=== PATIENT | male | born 2000 | race Caucasian/White ===

== ENCOUNTER 2020-01-11 15:16 | Emergency (ER) | payer MEDICAID, SELFPAY ==
[2020-01-11 15:40] VITALS: BP 129/71; PULSE 78; RESP 20; TEMP 36.7; O2SAT 96; BMI 32.1
--- NOTE | 2020-01-11 15:55 | HMH.EDUTC ---
[facility] [place] Disposition Clinical Impression: Otitis media Qualifiers: Otitis media type: suppurative Chronicity: acute Laterality: bilateral Recurrence: non-recurrent Spontaneous tympanic membrane rupture: without spontaneous rupture Qualified Code(s): H66.003 - Acute suppurative otitis media without spontaneous rupture of ear drum, bilateral Pharyngitis Qualifiers: Pharyngitis/tonsillitis etiology: unspecified etiology Qualified Code(s): J02.9 - Acute pharyngitis, unspecified Disposition: Home, Self-Care Condition on Discharge: Good Instructions: Sore Throat, Middle Ear Infection Additional Instructions: Drink plenty of fluids. Take tylenol or ibuprofen for pain or fever. Take the medications as directed. Follow up with your regular doctor. GO TO THE ER FOR ANY WORSENING SYMPTOMS Prescriptions: predniSONE [Deltasone 10mg tablet] 10 mg PO BID 3 Days #6 tab Transmission Status: Received by [id number] Azithromycin [Z-Michael 250mg Tab*] 250 mg PO UD DOSE PK #6 tab Transmission Status: Received by [id number] Referrals: Provider,Referral, [Primary Care Provider] - Time of Disposition: 15:58 Medical Decision Making - Medical Records Medical records reviewed: No: I reviewed the patient's medical records. - Ruslan Inquiry Pt receiving controlled substance: No Vital Signs: 01/11/20 15:40 01/11/20 16:08 Temperature 98.0 F 98.0 F Temperature Source Oral Pulse Rate 78 Pulse Rate [Left Brachial] 78 Respiratory Rate 20 20 Blood Pressure 129/71 Blood Pressure [Left Arm] 129/71 Blood Pressure Mean [Left Arm] 90 Blood Pressure Source [Left Arm] Automatic Cuff Blood Pressure Position [Left Arm] Sitting 02 Sat by Pulse Oximetry 96 Oxygen Delivery Method Room Air - Lab Data Lab results reviewed: Yes: I reviewed the patient's lab results. Lab Results 01/11/20 16:10: Strep Scn Rapid Clinic Negative Orders (Tests/Meds): ORDERS Category Date Time Status Strep Screen Confirmation Stat Micro 01/11/20 16:10 Received [facility] [place] HPI - General Stated complaint: Sore throat, pain in ears,headache Time Seen by Provider: 01/11/20 15:55 Mode of Arrival: Ambulatory Source of Information: Patient Limitations: No Limitations Description of Symptoms (Recalled from Triage Doc. by RN): PATIENT C/O SORE THROAT SINCE YESTERDAY AND BILATERAL EAR PAIN WITH POPPING THAT STARTED THIS MORNING. ALSO C/O FEELING TIRED. DENIES FEVER AND DIZZINESS. DENIES ANY SICK CONTACTS OR TRAVEL; WORKS AT [employer] Symptoms (Recalled from RN notes): Yes Resp Symptoms (Recalled from RN notes): No Skin Symptoms (Recalled from RN notes): No MS Symptoms (Recalled from RN notes): No Functional Status (Recalled from RN notes): WNL - History of Present Illness Provider Complaint: He c/o 2 days of right ear pain and sore throat. He denies any cough or chest congestion or fever. - Related Data Previous Rx's Medication Instructions Recorded Azithromycin [Z-Michael 250mg Tab*] 250 mg PO UD DOSE PK #6 tab 01/11/20 predniSONE [Deltasone 10mg tablet] 10 mg PO BID 3 Days #6 tab 01/11/20 Allergies Allergy/AdvReac Type Severity Reaction Status Date / Time amoxicillin [From Augmentin] Allergy Verified 01/11/20 15:45 cefdinir [From Omnicef] Allergy Verified 01/11/20 15:45 clavulanic acid Allergy Verified 01/11/20 15:45 [From Augmentin] - Worker's Comp Is this a Worker's Comp case?: No [facility] History - Hepatitis A Screen Drug use history?: No High risk sexual behaviors?: No History of sexually transmitted infection?: No Currently employed?: No Childcare worker?: No Do you have indoor plumbing?: Yes Do you have electricity?: Yes Attestation statement:: This patient has been screened for Hepatitis A risk factors. I have reviewed the patient's past medical history: Yes Medical History: Denies:: Diabetes Mellitus Type 2 Laterality Cases: Bilateral: Tonsillectomy Other Surgeries: Y
[2020-01-11 16:08] VITALS: BP 129/71; PULSE 78; RESP 20; TEMP 36.7; O2SAT 96
[2020-01-11 16:13] LABS: UTC Strep Screen (Rapid) Negative (Negative)
== END 2020-01-11 16:13 | disposition home or self-care (01) ==
PROVIDERS: Emergency Provider Nurse Practitioner Family
DX: H66.003 Acute suppurative otitis media without spontaneous rupture of ear drum, bilateral (principal); J02.9 Acute pharyngitis, unspecified
CPT/HCPCS: 87880; 99201

== ENCOUNTER 2020-04-11 13:08 | Emergency (ER) | payer MEDICAID, SELFPAY ==
[2020-04-11 13:28] VITALS: BP 118/62; PULSE 73; RESP 19; TEMP 37.1; O2SAT 97; BMI 33.5
--- NOTE | 2020-04-11 13:43 | HMH.EDUTC ---
[facility] [place] Disposition Clinical Impression: Chigger bites Disposition: Home, Self-Care Condition on Discharge: Good Instructions: DI for Rash, Hydrocortisone Topical, Preventing the Spread of Coronavirus Discharge Instructions Additional Instructions: Make sure to clean lower legs well and apply hydrocortisone cream to help with itching and irritation *Calamine lotion may help with itching and irritation You was checked for COVID 19, and you was given handout with instructions to Self Quarantine while awaiting result and Self Isolation if Positive Return if needed Straight to ER if any life threatening symptoms Follow instructions on handout to help prevent the spread of COVID 19 Call to the [facility] on Thursday TO SEE IF YOUR COVID RESULTS ARE BACK Prescriptions: Hydrocortisone 1 applicatio TP BID #1 tube Transmission Status: Received by [id number] Referrals: PCP,No [Primary Care Provider] - As needed Forms: Work/School Release Time of Disposition: 13:59 Medical Decision Making - Ruslan Inquiry Pt receiving controlled substance: No Ruslan was queried for this patient: No Vital Signs: 04/11/20 13:28 04/11/20 14:14 Temperature 98.7 F 98.7 F Temperature Source Oral Oral Pulse Rate 73 Pulse Rate [Left] 73 Respiratory Rate 19 19 Blood Pressure 118/62 Blood Pressure [Right Arm] 118/62 Blood Pressure Mean [Right Arm] 80 Blood Pressure Source [Right Arm] Automatic Cuff Blood Pressure Position Sitting Blood Pressure Position [Right Arm] Sitting 02 Sat by Pulse Oximetry 97 Oxygen Delivery Method Room Air Room Air Orders (Tests/Meds): ORDERS Category Date Time Status Covid-19 Nasal PCR Sendout Dereje Stat Lab 04/11/20 13:42 Received [facility] [place] HPI - General Stated complaint: sore throat Time Seen by Provider: 04/11/20 13:43 Mode of Arrival: Ambulatory Source of Information: Patient Limitations: No Limitations Description of Symptoms (Recalled from Triage Doc. by RN): Cough x 1 week, employer wants Covid testing, Rash on lower L leg HEENT Symptoms (Recalled from RN notes): Yes Resp Symptoms (Recalled from RN notes): No Skin Symptoms (Recalled from RN notes): No MS Symptoms (Recalled from RN notes): No Functional Status (Recalled from RN notes): stable - History of Present Illness Provider Complaint: Patient states that he has been having a itchy like rash on his left leg State that it is no where else on his body and occured after he was out in the grass State that he took a shower immediately after he came in but still itching States that also he has had cough and throat irritation for over a week and work wanted him to come in and get checked for COVID - Related Data Previous Rx's Medication Instructions Recorded Azithromycin [Z-Michael 250mg Tab*] 250 mg PO UD DOSE PK #6 tab 01/11/20 predniSONE [Deltasone 10mg tablet] 10 mg PO BID 3 Days #6 tab 01/11/20 Hydrocortisone 1 applicatio TP BID #1 tube 04/11/20 Allergies Allergy/AdvReac Type Severity Reaction Status Date / Time amoxicillin [From Augmentin] Allergy Verified 04/11/20 13:39 cefdinir [From Omnicef] Allergy Verified 04/11/20 13:39 clavulanic acid Allergy Verified 04/11/20 13:39 [From Augmentin] - Worker's Comp Is this a Worker's Comp case?: No Is this an H Worker's Comp?: No Is this a May Worker's Comp?: No [facility] History - Hepatitis A Screen Drug use history?: No High risk sexual behaviors?: No History of sexually transmitted infection?: No Currently employed?: No Childcare worker?: No Do you have indoor plumbing?: Yes Do you have electricity?: Yes Attestation statement:: This patient has been screened for Hepatitis A risk factors. I have reviewed the patient's past medical history: Yes Medical History: Denies:: Cancer, Diabetes Mellitus Type 1, Diabetes Mellitus Type 2, Internal Pacemaker, MRSA Laterality Cases: Bilateral: Tonsillectomy Other Surgeries: Yes: Other. No: Pacemaker Amputation: No Fr
[2020-04-11 14:14] VITALS: BP 118/62; PULSE 73; RESP 19; TEMP 37.1; O2SAT 97
[2020-04-12 15:54] LABS: Covid-19 Nasal PCR Sendout Lex NOT DETECTED
== END 2020-04-11 14:17 | disposition home or self-care (01) ==
PROVIDERS: Emergency Provider Nurse Practitioner
DX: B88.0 Other acariasis (principal); Z20.828 Contact with and (suspected) exposure to other viral communicable diseases
CPT/HCPCS: 99201; U0004

== ENCOUNTER 2020-09-29 14:41 | Emergency (ER) | payer SELFPAY ==
[2020-09-29 15:05] VITALS: BP 126/80; PULSE 65; RESP 14; TEMP 36.9; O2SAT 99; BMI 32.8
--- NOTE | 2020-09-29 15:20 | HMH.EDUTC ---
[facility] – [place] Disposition Clinical Impression: Exposure to COVID-19 virus Acute bronchitis Qualifiers: Bronchitis organism: unspecified organism Qualified Code(s): J20.9 - Acute bronchitis, unspecified Disposition: Home, Self-Care Condition on Discharge: Good Instructions: DI for COVID-19 (Suspected or Confirmed ), Preventing the Spread of Coronavirus Discharge Instructions Additional Instructions: Drink plenty of fluids. Take tylenol for pain or fever. Return if you begin to have difficulty breathing. Follow up with your regular doctor. GO TO THE ER FOR ANY WORSENING SYMPTOMS Prescriptions: Albuterol Sulfate [Albuterol Sulfate Hfa] 2 puffs IH Q6HP PRN 30 Days #1 hfa.aer.ad PRN Reason: Shortness Of Breath Transmission Status: Received by [id number] predniSONE [Deltasone 10mg tablet] 10 mg PO BID 5 Days #10 tab Transmission Status: Received by [facility] Azithromycin [Z-Michael 250mg Tab*] 250 mg PO UD DOSE PK #6 tab Transmission Status: Received by [facility] Referrals: PCP,No [Primary Care Provider] - Forms: Work/School Release Time of Disposition: 15:25 Medical Decision Making - Medical Records Medical records reviewed: No: I reviewed the patient's medical records. - Ruslan Inquiry Pt receiving controlled substance: No Vital Signs: 09/29/20 15:05 09/29/20 15:28 Temperature 98.4 F 98.4 F Temperature Source Oral Pulse Rate 65 Pulse Rate [Right Brachial] 65 Respiratory Rate 14 14 Blood Pressure 126/80 Blood Pressure [Right Arm] 126/80 Blood Pressure Mean [Right Arm] 95 Blood Pressure Source [Right Arm] Automatic Cuff Blood Pressure Position [Right Arm] Sitting 02 Sat by Pulse Oximetry 99 Oxygen Delivery Method Room Air [facility] – [place] HPI - General Stated complaint: sore throat, cough, no taste/smell; exposure Time Seen by Provider: 09/29/20 15:20 Mode of Arrival: Ambulatory Source of Information: Patient Limitations: No Limitations Description of Symptoms (Recalled from Triage Doc. by RN): COVID TEST D/T EXPOSURE. C/O COUGH, SOA, BODY ACHES, SORE THROAT, AND LOSS OF TASTE AND SMELL HEENT Symptoms (Recalled from RN notes): Yes Resp Symptoms (Recalled from RN notes): Yes Skin Symptoms (Recalled from RN notes): No MS Symptoms (Recalled from RN notes): No Functional Status (Recalled from RN notes): WNL - History of Present Illness Provider Complaint: He c/o 2 days of chest congestion and sinus congestion. He has a history of asthma. He had covid back in june, but he feels like he has it again. He works in an [employer]. - Related Data Previous Rx's Medication Instructions Recorded Azithromycin [Z-Michael 250mg Tab*] 250 mg PO UD DOSE PK #6 tab 01/11/20 predniSONE [Deltasone 10mg tablet] 10 mg PO BID 3 Days #6 tab 01/11/20 Hydrocortisone 1 applicatio TP BID #1 tube 04/11/20 Albuterol Sulfate [Albuterol 2 puffs IH Q6HP PRN 30 Days #1 09/29/20 Sulfate Hfa] hfa.aer.ad Azithromycin [Z-Michael 250mg Tab*] 250 mg PO UD DOSE PK #6 tab 09/29/20 predniSONE [Deltasone 10mg tablet] 10 mg PO BID 5 Days #10 tab 09/29/20 Allergies Allergy/AdvReac Type Severity Reaction Status Date / Time amoxicillin [From Augmentin] Allergy Verified 04/11/20 13:39 cefdinir [From Omnicef] Allergy Verified 04/11/20 13:39 clavulanic acid Allergy Verified 04/11/20 13:39 [From Augmentin] - Worker's Comp Is this a Worker's Comp case?: No [facility] History - Hepatitis A Screen Drug use history?: No High risk sexual behaviors?: No History of sexually transmitted infection?: No Currently employed?: No Childcare worker?: No Do you have indoor plumbing?: Yes Do you have electricity?: Yes Attestation statement:: This patient has been screened for Hepatitis A risk factors. I have reviewed the patient's past medical history: Yes Medical History: Denies:: Cancer, Diabetes Mellitus Type 1, Diabetes Mellitus Type 2, Internal Pacemaker, MRSA Laterality Cases: Bila
[2020-09-29 15:28] VITALS: BP 126/80; PULSE 65; RESP 14; TEMP 36.9; O2SAT 99
--- NOTE | 2020-09-29 19:23 | PC.NURSE ---
PATIENT NOTIFIED OF POSITIVE COVID RESULTS
== END 2020-09-29 15:32 | disposition home or self-care (01) ==
PROVIDERS: Emergency Provider Nurse Practitioner Family
DX: U07.1 COVID-19 (principal)
CPT/HCPCS: 99202; G0463; U0003

== ENCOUNTER → 2021-07-12 11:10 | Outpatient (CLI) | payer OTHER, SELFPAY | PROVIDERS: Visit Provider Nurse Practitioner | DX: Z20.822 Contact with and (suspected) exposure to COVID-19 (principal) | CPT/HCPCS: C9803; U0003; U0005 ==

== ENCOUNTER → 2021-07-15 09:29 | Outpatient (CLI) | payer OTHER, SELFPAY | PROVIDERS: Visit Provider Nurse Practitioner | DX: Z20.822 Contact with and (suspected) exposure to COVID-19 (principal) | CPT/HCPCS: C9803; U0003; U0005 ==

== ENCOUNTER → 2021-09-09 10:08 | Outpatient (CLI) | payer OTHER, SELFPAY | PROVIDERS: Visit Provider Nurse Practitioner | DX: Z20.822 Contact with and (suspected) exposure to COVID-19 (principal) | CPT/HCPCS: C9803; U0003; U0005 ==

== ENCOUNTER 2021-10-20 09:38 | Emergency (ER) | payer OTHER, SELFPAY ==
[2021-10-20 09:40] VITALS: BP 118/77; PULSE 66; RESP 18; TEMP 36.8; O2SAT 98; BMI 34.4
--- NOTE | 2021-10-20 09:59 | HMH.EDUTC ---
[facility] [place] Clinical Impression: Otitis media Qualifiers: Otitis media type: suppurative Chronicity: acute Laterality: left Recurrence: non-recurrent Spontaneous tympanic membrane rupture: without spontaneous rupture Qualified Code(s): H66.002 - Acute suppurative otitis media without spontaneous rupture of ear drum, left ear Disposition: Home, Self-Care Condition on Discharge: Good Instructions: Middle Ear Infection Additional Instructions: Start antibiotic as soon as possible and be sure to take as ordered for full length of time even though he should start feeling better in 24-48 hours. Tylenol or Motrin as needed for pain or fever Encourage fluids, water, Gatorade, Powerade, Pedialyte if /toddler/child Warm compresses often helps when placed over ear Return immediately for new or worsening symptoms no noticeable improvement in 48-72 hours and in 10-14 days to ensure the ears are return to baseline. Follow-up with primary care Prescriptions: Azithromycin [Zithromax 250mg tab] 250 mg PO DIRECTED #6 tab Transmission Status: Pending to [id number] Referrals: Provider,Referral, [Primary Care Provider] - Time of Disposition: 10:04 Medical Decision Making - Ruslan Inquiry Pt receiving controlled substance: No [facility] [place] HPI - General Chief complaint: Urgent [facility] Center Stated complaint: bilateral ear ache, sore throat Time Seen by Provider: 10/20/21 10:00 Mode of Arrival: Ambulatory Source of Information: Patient Limitations: No Limitations - History of Present Illness Provider Complaint: 21 yr old male presents for cough, sore throat, nasal drainage and soa since yesterday. - Related Data Previous Rx's Medication Instructions Recorded Azithromycin [Zithromax 250mg 250 mg PO DIRECTED #6 tab 10/20/21 tab] Allergies Allergy/AdvReac Type Severity Reaction Status Date / Time amoxicillin [From Augmentin] Allergy Verified 04/11/20 13:39 cefdinir [From Omnicef] Allergy Verified 04/11/20 13:39 clavulanic acid Allergy Verified 04/11/20 13:39 [From Augmentin] [facility] History - Hepatitis A Screen Attestation statement:: This patient has been screened for Hepatitis A risk factors. I have reviewed the patient's past medical history: Yes Medical History: Denies:: Cancer, Diabetes Mellitus Type 1, Diabetes Mellitus Type 2, Internal Pacemaker, MRSA Laterality Cases: Bilateral: Tonsillectomy Other Surgeries: Yes: Other. No: Pacemaker Amputation: No Fractures: No Comment: right arm surgery, dental surgery - Social History Smoking Status: Never smoker Alcohol Intake: never Substance Use Type: denies use Occupational Status: other Housing: house Household Members: family Family Hx:: Cancer ROS Obtained: Yes Systems reviewed as appropriate & no additional complaints - Constitutional Constitutional: Reports system reviewed and no additional complaints, except as docu, Reports fatigue, Denies fever(s) - Eyes Eyes: Reports system reviewed and no additional complaints, except as docu, Denies blind spots - ENT Ears, Nose, Mouth, and Throat: Reports system reviewed and no additional complaints, except as docu, Reports otalgia, Reports nasal congestion, Reports nasal discharge, Reports sinus pain, Reports sinus pressure, Reports sore throat - Cardiovascular Cardiovascular: Reports system reviewed and no additional complaints, except as docu, Denies chest pain - Respiratory Respiratory: Reports system reviewed and no additional complaints, except as docu, Reports shortness of breath, Reports change in phlegm color, Reports chest congestion, Reports cough - Gastrointestinal Gastrointestingal: Reports: system reviewed and no additional complaints, except as docu. Denies: abdominal pain - Musculoskeletal Musculoskeletal: Reports system reviewed and no additional complaints, except as docu, Denies joint pain - Integumentary/Breasts Skin/Breast: Reports syste
[2021-10-20 10:03] LABS: UTC Strep Screen (Rapid) Negative (Negative)
[2021-10-20 10:04] VITALS: BP 118/77; PULSE 66; RESP 18; TEMP 36.8; O2SAT 98
== END 2021-10-20 10:08 | disposition home or self-care (01) ==
PROVIDERS: Emergency Provider Nurse Practitioner Family
DX: H66.002 Acute suppurative otitis media without spontaneous rupture of ear drum, left ear (principal); R53.82 Chronic fatigue, unspecified; Z88.0 Allergy status to penicillin; Z88.8 Allergy status to other drugs, medicaments and biological substances; Z20.822 Contact with and (suspected) exposure to COVID-19
CPT/HCPCS: 87880; 99213; C9803; G0463; U0003; U0005

== ENCOUNTER 2021-11-08 09:13 | Emergency (ER) | payer OTHER, SELFPAY ==
[2021-11-08 10:05] VITALS: BP 131/84; PULSE 86; RESP 19; TEMP 36.8; O2SAT 100; BMI 32.8
--- NOTE | 2021-11-08 10:10 | HMH.EDUTC ---
[facility] [place] Impression: Sinusitis Qualifiers: Sinusitis location: unspecified location Chronicity: acute Recurrence: non-recurrent Qualified Code(s): J01.90 - Acute sinusitis, unspecified Disposition: Home, Self-Care Condition on Discharge: Good Instructions: DI for Sinusitis Additional Instructions: Drink plenty of fluids. Take tylenol or ibuprofen for pain or fever. Take the medications as directed. Follow up with your regular doctor. GO TO THE ER FOR ANY WORSENING SYMPTOMS Prescriptions: Benzonatate [Benzonatate 100mg cap] 100 mg PO TIDP PRN #30 cap PRN Reason: Cough Transmission Status: Received by [facility] predniSONE [Deltasone 10mg tablet] 10 mg PO BID 4 Days #8 tab Transmission Status: Received by [facility] Azithromycin [Z-Michael 250mg Tab*] 250 mg PO UD DOSE PK #6 tab Transmission Status: Received by [facility] Referrals: Provider,Referral, MD [Primary Care Provider] - Time of Disposition: 10:50 Medical Decision Making - Medical Records Medical records reviewed: No: I reviewed the patient's medical records. - Ruslan Inquiry Pt receiving controlled substance: No Vital Signs: 11/08/21 10:05 11/08/21 11:05 Temperature 98.3 F 98.3 F Temperature Source Oral Pulse Rate 86 Pulse Rate [Right Brachial] 86 Respiratory Rate 19 19 Blood Pressure 131/84 Blood Pressure [Right Arm] 131/84 Blood Pressure Mean [Right Arm] 99 Blood Pressure Source [Right Arm] Automatic Cuff Blood Pressure Position [Right Arm] Sitting 02 Sat by Pulse Oximetry 100 Oxygen Delivery Method Room Air - Lab Data Lab results reviewed: Yes: I reviewed the patient's lab results. Lab Results 11/08/21 10:08: Group A Strep Rapid Negative Orders (Tests/Meds): ORDERS Category Date Time Status Strep Screen Confirmation Stat Micro 11/08/21 10:08 [place] [facility] [place] - General Stated complaint: cough,runny nose,congestion Time Seen by Provider: 11/08/21 10:10 - History of Present Illness Provider Complaint: He states that he has had sinus congestion, runny nose and he has felt bad for the past 2 days. - Related Data Previous Rx's Medication Instructions Recorded Azithromycin [Z-Michael 250mg Tab*] 250 mg PO UD DOSE PK #6 tab 11/08/21 Benzonatate [Benzonatate 100mg 100 mg PO TIDP PRN #30 cap 11/08/21 cap] predniSONE [Deltasone 10mg tablet] 10 mg PO BID 4 Days #8 tab 11/08/21 Allergies Allergy/AdvReac Type Severity Reaction Status Date / Time amoxicillin [From Augmentin] Allergy Verified 04/11/20 13:39 cefdinir [From Omnicef] Allergy Verified 04/11/20 13:39 clavulanic acid Allergy Verified 04/11/20 13:39 [From Augmentin] [facility] History - Hepatitis A Screen Attestation statement:: This patient has been screened for Hepatitis A risk factors. I have reviewed the patient's past medical history: Yes Medical History: Denies:: Cancer, Diabetes Mellitus Type 1, Diabetes Mellitus Type 2, Internal Pacemaker, MRSA Laterality Cases: Bilateral: Tonsillectomy Other Surgeries: Yes: Other. No: Pacemaker Amputation: No Fractures: No Comment: right arm surgery, dental surgery - Social History Smoking Status: Never smoker Alcohol Intake: never Substance Use Type: denies use Occupational Status: other Housing: house Household Members: family Family Hx:: Cancer ROS Obtained: Yes All systems reviewed & no additional complaints - Constitutional Constitutional: Reports as per HPI - Eyes Eyes: Denies eye discharge - ENT Ears, Nose, Mouth, and Throat: Reports as per HPI - Cardiovascular Cardiovascular: Denies chest pain - Respiratory Respiratory: Denies chest congestion, Reports cough, Denies dyspnea, Denies stridor, Denies wheezing - Gastrointestinal Gastrointestingal: Reports: nausea. Denies: abdominal pain, diarrhea, vomiting Physical Exam - General General appearance: alert, in no apparen
[2021-11-08 10:39] LABS: Strep Scrn Group A (Rapid) Negative (Negative)
[2021-11-08 11:05] VITALS: BP 131/84; PULSE 86; RESP 19; TEMP 36.8; O2SAT 100
== END 2021-11-08 11:08 | disposition home or self-care (01) ==
PROVIDERS: Emergency Provider Nurse Practitioner Family
DX: J01.90 Acute sinusitis, unspecified (principal)
CPT/HCPCS: 87430; 99212; G0463

== ENCOUNTER 2022-07-14 14:26 | Emergency (ER) | payer BC, SELFPAY ==
--- NOTE | 2022-07-14 16:15 | EXP.UTC ---
Discharge Plan Disposition Patient Disposition: Home, Self-Care Condition: Good Prescriptions Prescriptions: New azithromycin [Zithromax] 250 mg tablet 250 mg PO UD DOSE PK Qty: 6 0RF Rx Instructions: Take two (2) tablets today, then one (1) tablet days #2 thru #5 methylprednisolone 4 mg Tablets,Dose Pack 4 mg PO DIRECTED Qty: 21 0RF [id number]-[id number] [Bromfed DM] 2-30-10 mg/5 mL Syrup 5 ml PO Q6H PRN (Reason: Cough) Qty: 240 0RF No Action azithromycin 250 MG tablet 250 mg PO UD DOSE PK Qty: 6 0RF Rx Instructions: Take two (2) tablets today, then one (1) tablet days #2 thru #5 benzonatate 100 MG capsule 100 mg PO TIDP PRN (Reason: Cough) Qty: 30 0RF prednisone 10 MG tablet 10 mg PO BID 4 Days Qty: 8 0RF Activity Restrictions/Add. Instructions Additional Instructions/Restrictions: Drink plenty of fluids. Take tylenol or ibuprofen for pain or fever. Take the medications as directed. Follow up with your regular doctor. GO TO THE ER FOR ANY WORSENING SYMPTOMS Clinical Impressions Clinical Impression: Pharyngitis Stand Alone Forms Stand Alone Forms: Work/School Release Instructions Patient Instructions: DI for Pharyngitis/Tonsillopharyngitis -- Adult Discharge ED Provider: Parrish Marrufo [facility] General Stated complaint: Cough,sore throat Time Seen by Provider: 07/14/22 16:15 History of Present Illness Provider Complaint: He states that for the past 1 day he has had sore throat, chills and he has felt bad. Related Data Previous Rx's Medication Instructions Recorded azithromycin 250 mg tablet 250 mg PO UD DOSE PK #6 tabs 11/08/21 benzonatate 100 mg capsule 100 mg PO TIDP PRN Cough #30 caps 11/08/21 prednisone 10 mg tablet 10 mg PO BID 4 days #8 tabs 11/08/21 azithromycin 250 mg tablet 250 mg PO UD DOSE PK #6 tabs 07/14/22 (Zithromax) [id number]-dxfmxapuotrmezr-ID 5 ml PO Q6H PRN Cough #240 mL 07/14/22 2 mg-30 mg-10 mg/5 mL oral syrup (Bromfed DM) methylprednisolone 4 mg tablets in 4 mg PO DIRECTED #21 tabs 07/14/22 a dose pack Allergies Allergy/AdvReac Type Severity Reaction Status Date / Time amoxicillin [From Augmentin] Allergy Verified 07/14/22 16:30 cefdinir [From Omnicef] Allergy Verified 07/14/22 16:30 clavulanic acid Allergy Verified 07/14/22 16:30 [From Augmentin] PFSH PFSH Social History Smoking Status: Never smoker second hand exposure: No alcohol intake: never substance use type: denies use current occupational status: other Travel in the last 8 weeks: None household members: family housing: house current occupational exposures/hazards: No caffeine: Yes ROS Obtained: Yes All systems reviewed & no additional complaints except as documented Constitutional Constitutional: Reports chills and Denies fever(s) Eyes Eyes: Denies eye discharge ENT Ears, Nose, Mouth, and Throat: Reports as per HPI Cardiovascular Cardiovascular: Denies chest pain Respiratory Respiratory: Denies chest congestion and Reports cough Gastrointestinal Gastrointestingal: Reports nausea; Denies abdominal pain, constipation, cramping, diarrhea or vomiting Musculoskeletal Musculoskeletal: Denies arthralgias Integumentary/Breasts Skin/Breast: Denies rash Neurologic Neurologic: Denies paresthesias Physical Exam General General appearance: alert and in no apparent distress Head Head exam: atraumatic, normocephalic and normal inspection Eye Eye exam: Present normal appearance, PERRL and EOMI ENT ENT exam: Present mucous membranes moist and normal external ear exam Expanded ENT Exam TM/Canal exam: Bilateral TM: erythema and bulging Nose exam: Absent sinus tenderness Mouth exam: Present normal external inspection; Absent drooling Teeth exam: Present normal inspection Throat exam: Present tonsillar erythema, tonsillomegaly and tonsillar
[2022-07-14 16:29] VITALS: BP 152/87; PULSE 78; RESP 16; TEMP 36.7; O2SAT 98; BMI 33.5
[2022-07-14 16:33] LABS: UTC Strep Screen (Rapid) Negative (Negative)
[2022-07-14 16:34] LABS: UTC Influenza A Antigen Negative (Negative); UTC Influenza B Antigen Negative (Negative)
[2022-07-14 16:54] VITALS: BP 152/87; PULSE 78; RESP 16; TEMP 36.7
== END 2022-07-14 16:55 | disposition home or self-care (01) ==
PROVIDERS: Emergency Provider Nurse Practitioner Family
DX: J02.9 Acute pharyngitis, unspecified (principal); R05.9 Cough, unspecified
CPT/HCPCS: 87804; 87880; 99212; G0463

== ENCOUNTER 2023-03-29 13:10 | Emergency (ER) | payer BC, SELFPAY ==
--- NOTE | 2023-03-29 13:10 | ECG_ITS ---
APPROVED REPORT Exam: Resting ECG HR:67 bpm ECG Measurements Heart Rate 67 AXES IL 134 P 67 QRSd 116 QRS 80 QT 353 T 68 QTc 368 Conclusion SINUS RHYTHM INCOMPLETE RIGHT BUNDLE BRANCH BLOCK [90+ ms QRS DURATION, TERMINAL R IN V1/V2, 40+ ms S IN I/aVL/V4/V5/V6] MODERATE ST DEPRESSION [0.05+ mV ST DEPRESSION] ABNORMAL ECG UNCONFIRMED REPORT Electronically signed by : Darrick Tovar MD 03/30/2023 14:02:03
[2023-03-29 13:14] VITALS: BP 162/85; PULSE 85; RESP 16; TEMP 36.6; O2SAT 100; BMI 33.0
--- NOTE | 2023-03-29 13:23 | XR_ITS ---
PROCEDURE INFORMATION: Exam: XR Chest Exam date and time: 03/29/2023 1:26 PM Age: 22 years old Clinical indication: Sternal or substernal pain; Patient HX: Chest pain for a week, non-smoker, no chest surgeries. TECHNIQUE: Imaging protocol: Radiologic exam of the chest. Views: 1 view. COMPARISON: No relevant prior studies available. FINDINGS: Tubes, catheters and devices: EKG leads. Lungs: Unremarkable. No consolidation. Pleural spaces: Unremarkable. No pleural effusion. No pneumothorax. Heart/Mediastinum: Unremarkable. No cardiomegaly. Bones/joints: Unremarkable. IMPRESSION: No acute findings.
[2023-03-29 13:26] VITALS: PULSE 67
--- NOTE | 2023-03-29 13:30 | PC.NURSE ---
RAD @ BS for XR
[2023-03-29 13:38] LABS: Basophils % 0.6 % (0.1-2.0); Eosinophils # 0.2 K/mm3 (0.0-0.4); Eosinophils % 3.2 % (0.1-12.0); Hematocrit 45.9 % (42.0-52.0); Hemoglobin 14.8 g/dL (14.1-18.0); Lymphocytes # 2.2 K/mm3 (0.7-4.5); Lymphocytes % 31.9 % (10-50); Mean Corpuscular HGB Conc 32.1 g/dL (31.8-35.4); Mean Corpuscular Hemoglobin 28.5 pg (27.0-31.2); Mean Corpuscular Volume 88.7 fl (80-94); Mean Platelet Volume 7.5 fl (7.4-10.4); Monocytes # 0.5 K/mm3 (0.1-1.0); Monocytes % 7.5 % (1.7-9.3); Neutrophils # 3.9 K/mm3 (1.8-7.8); Neutrophils % 56.8 % (37.0-80.0); Platelet Count 248 K/mm3 (142-424); Red Blood Count 5.18 M/mm3 (4.60-6.20); Red Cell Distribution Width 13.4 % (11.5-17.5); White Blood Count 6.8 K/mm3 (4.8-10.8)
[2023-03-29 13:43] LABS: Anion Gap 12.7 mEq/L (5-15); Blood Urea Nitrogen 12 mg/dl (9-20); Calcium 9.2 mg/dl (8.4-10.2); Carbon Dioxide 29 mmol/L (22.0-30.0); Chloride 104 mmol/L (98-107); Creatinine Clearance Estimated 168 mL/min (50-200); Estimated Glomerular Filt Rate 92 ml/min (>60); GFR (African American) 111 ML/MIN (>60); Glucose 89 mg/dl (74-100); Potassium 4.7 mmoL/L (3.5-5.1); Sodium 141 mmol/L (136-145)
[2023-03-29 14:00] VITALS: BP 136/78; RESP 20
[2023-03-29 14:01] LABS: Troponin I < 0.01 ng/ml (0.00-0.034)
--- NOTE | 2023-03-29 14:11 | HMH.EDGENADL ---
Discharge Plan Disposition Patient Disposition: Home, Self-Care Condition: Good Prescriptions Prescriptions: New hydroxyzine HCl 25 mg tablet 25 mg PO Q6H PRN (Reason: itching) Qty: 14 0RF ketorolac 10 mg tablet 10 mg PO Q8H Qty: 20 0RF No Action benzonatate 200 mg capsule 200 mg PO TID PRN (Reason: cough) 10 Days Qty: 30 0RF fluticasone propionate [Flonase Allergy Relief] 50 mcg/actuation spray,suspension 1 spray intranasal DAILY Qty: 10 1RF Rx Instructions: administer into each nostril Referrals Follow up/Referrals: Provider,Referral, MD [Primary Care Provider] - See instructions Activity Restrictions/Add. Instructions Additional Instructions/Restrictions: Please follow-up with your primary care provider. Please return to the emergency department if you develop any new or worsening symptoms or become concerned for your health. You have been given prescriptions for hydroxyzine, Toradol, please take these as directed. Recommend that you follow-up as scheduled with a PCP. Clinical Impressions Clinical Impression: Chest pain Qualifiers: Chest pain type: unspecified Qualified Code(s): R07.9 - Chest pain, unspecified Discharge ED Provider: Zeus Hopkins I General Adult HPI General Chief complaint: Chest Pain Stated complaint: chest pain Time Seen by Provider: 03/29/23 13:24 Mode of Arrival: Ambulatory Source of Information: Patient Limitations: No Limitations Description of Symptoms (Recalled from ER Triage Doc. by RN): Presents to ED with c/o constant dull midsternal chest pain x 5 days. Patient reports he was at work sitting at a computer when patient noticed it worse. Denies cardiac hx. Patient states he took 650mg of Aspirin with no relief. History of Present Illness HPI narrative: Patient is a 22-year-old male with no other medical history presenting to the emergency department with a 4-day history of left-sided chest discomfort. History was conducted with the patient at bedside. Patient reports that his symptoms started on , he reports it is an abnormal thumping, discomforting sensation within the left side of his chest. He denies any associated shortness of breath, difficulty breathing. He states that every once in a while he will develop a sharp pain within his left chest. He also earlier today developed some lightheadedness and dizziness, felt that he was hot. Denies any chills, cough, congestion, runny nose, nausea, vomiting, abdominal pain, diarrhea, constipation. Patient is also concerned that symptoms could be secondary to anxiety. Related Data Previous Rx's Medication Instructions Recorded benzonatate 200 mg capsule 200 mg PO TID PRN cough 10 days 10/16/22 #30 caps fluticasone propionate 50 1 spray intranasal DAILY #10 mL 10/16/22 mcg/actuation nasal spray,suspension (Flonase Allergy Relief) hydroxyzine HCl 25 mg tablet 25 mg PO Q6H PRN itching #14 tabs 03/29/23 ketorolac 10 mg tablet 10 mg PO Q8H #20 tabs 03/29/23 Allergies Allergy/AdvReac Type Severity Reaction Status Date / Time amoxicillin [From Augmentin] Allergy Verified 10/16/22 13:02 cefdinir [From Omnicef] Allergy Verified 10/16/22 13:02 clavulanic acid Allergy Verified 10/16/22 13:02 [From Augmentin] [facility] Disclaimer: The information contained in this section may have been updated after the patient was seen, as this information can be updated by other users. Medical History (Updated 03/29/23 @ 15:33 by Zeus Hopkins MD) Acute bronchitis Chigger bites Exposure to COVID-19 virus Otitis media Pharyngitis Sinusitis Social History Smoking Status: Never smoker second hand exposure: No alcohol intake: never substance use type: denies use current occupational status: other Travel in the last 8 weeks: None household members: family housing: house current occupational exposures/hazards: No
--- NOTE | 2023-03-29 14:18 | PC.NURSE ---
Rounded on patient nothing needed at this time. Call lomax within reach of patient
[2023-03-29 14:30] VITALS: BP 131/63; PULSE 75; RESP 20; O2SAT 98
[2023-03-29 15:00] VITALS: BP 140/78; RESP 18
--- NOTE | 2023-03-29 15:26 | PC.NURSE ---
Rounded on patient; patient stated the medications he received significantly helped his pain. Call lomax within reach of patient. MD notified
[2023-03-29 15:38] VITALS: BP 139/71; PULSE 74; RESP 16; TEMP 36.6; O2SAT 99
== END 2023-03-29 15:40 | disposition home or self-care (01) ==
PROVIDERS: Emergency Provider Emergency Medicine
DX: R07.9 Chest pain, unspecified (principal); R42 Dizziness and giddiness
CPT/HCPCS: 71045; 80048; 84484; 85025; 93005; 96374; 99285

== ENCOUNTER → 2023-03-30 16:36 | Outpatient (CLI) | payer BC, SELFPAY | LOC: RT 16:42 | PROVIDERS: Visit Provider Emergency Medicine | DX: R07.9 Chest pain, unspecified (principal) | CPT/HCPCS: 93225 ==

== ENCOUNTER 2023-10-19 12:37 | Emergency (ER) | payer BC, SELFPAY ==
[2023-10-19 13:00] VITALS: BP 143/78; PULSE 60; RESP 18; TEMP 36.8; O2SAT 99; BMI 34.5
--- NOTE | 2023-10-19 13:00 | ED_ITS ---
Discharge Plan Disposition Patient Disposition: Home, Self-Care Condition: Good Prescriptions Prescriptions: New azithromycin [Zithromax] 250 mg tablet 250 mg PO UD DOSE PK Qty: 6 0RF Rx Instructions: Take two (2) tablets today, then one (1) tablet days #2 thru #5 methylprednisolone 4 mg Tablets,Dose Pack 4 mg PO DIRECTED 6 Days Qty: 21 0RF Rx Instructions: Take 1 pack as directed for 6 days pzoqzeilwoambua-jlgiklkgp-TP [Bromfed DM] 2-30-10 mg/5 mL Syrup 5 ml PO Q6H PRN (Reason: Cough) Qty: 240 0RF Referrals Follow up/Referrals: Provider,Referral, MD [Primary Care Provider] - See instructions Activity Restrictions/Add. Instructions Additional Instructions/Restrictions: Drink plenty of fluids. Take tylenol or ibuprofen for pain or fever. Take the medications as directed. Follow up with your regular doctor. GO TO THE ER FOR ANY WORSENING SYMPTOMS Clinical Impressions Clinical Impression: Pharyngitis, Acute viral syndrome Stand Alone Forms Stand Alone Forms: Work/School Release Instructions Patient Instructions: Sore Throat, DI for Pharyngitis/Tonsillopharyngitis -- Adult, DI for Viral Syndrome Discharge ED Provider: Parrish Marrufo [facility] General Stated complaint: congestion, ear pain Time Seen by Provider: 10/19/23 13:00 History of Present Illness Provider Complaint: He states that for the past 2 days he has had sore throat, fever, chills, malaise, body aches, and chest congestion. Related Data Previous Rx's Medication Instructions Recorded azithromycin 250 mg tablet 250 mg PO UD DOSE PK #6 tabs 10/19/23 (Zithromax) zerznyzqlnscfje-hzwjplqydawwrvt-EP 5 ml PO Q6H PRN Cough #240 mL 10/19/23 2 mg-30 mg-10 mg/5 mL oral syrup (Bromfed DM) methylprednisolone 4 mg tablets in 4 mg PO DIRECTED 6 days #21 tabs 10/19/23 a dose pack Allergies Allergy/AdvReac Type Severity Reaction Status Date / Time amoxicillin [From Augmentin] Allergy Verified 10/19/23 13:13 cefdinir [From Omnicef] Allergy Verified 10/19/23 13:13 clavulanic acid Allergy Verified 10/19/23 13:13 [From Augmentin] [facility] Disclaimer: The information contained in this section may have been updated after the patient was seen, as this information can be updated by other users. Medical History (Updated 10/19/23 @ 13:42 by Parrish Marrufo APRN) Acute bronchitis Chigger bites Exposure to COVID-19 virus Otitis media Pharyngitis Sinusitis Social History Smoking Status: Never smoker second hand exposure: No alcohol intake: never substance use type: denies use current occupational status: other Travel in the last 8 weeks: None household members: family housing: house current occupational exposures/hazards: No caffeine: Yes ROS Obtained: Yes All systems reviewed & no additional complaints except as documented Constitutional Constitutional: Reports chills and Reports fever(s) Eyes Eyes: Denies eye discharge ENT Ears, Nose, Mouth, and Throat: Reports as per HPI Cardiovascular Cardiovascular: Denies chest pain Respiratory Respiratory: Denies chest congestion and Reports cough Gastrointestinal Gastrointestingal: Reports nausea; Denies abdominal pain, constipation, cramping, diarrhea or vomiting Musculoskeletal Musculoskeletal: Denies arthralgias Integumentary/Breasts Skin/Breast: Denies rash Neurologic Neurologic: Denies paresthesias Physical Exam General General appearance: alert and in no apparent distress Head Head exam: atraumatic, normocephalic and normal inspection Eye Eye exam: Present normal appearance, PERRL and EOMI ENT ENT exam: Present mucous membranes moist and normal external ear exam Expanded ENT Exam TM/Canal exam: Bilateral TM: erythema and bulging Nose exam: Absent sinus tenderness Mouth exam: Present normal external inspection; Absent drooling Teeth exam: Present normal inspection Throat exam: Present tonsillar erythema, tonsillomegaly and tonsillar exudate Neck Neck exam: Present normal inspection, full ROM and trachea midline; Absent tenderness, meningismus or lymphadenopathy Chest Chest inspection: Present normal inspection and symmetric chest wall rise; Absent tenderness Respiratory Respiratory exam: Present normal lung sounds bilaterally; Absent respiratory d istress, wheezes, stridor or accessory muscle use Cardiovascular Cardiovascular exam: Present regular rate and normal rhythm; Absent systolic murmur or diastolic murmur Abdominal Exam Abdominal exam: Present soft and normal bowel sounds; Absent distention, tenderness, guarding, rebound or rigidity Extremities Exam Extremities exam: Present normal inspection and normal capillary refill; Absent calf tenderness Back Exam Back exam: Present normal inspection and full ROM; Absent tenderness, CVA tenderness (R) or CVA tenderness (L) Neurological Exam Neurological exam: Present alert, oriented X3 and CN II-XII intact Psychiatric Psychiatric exam: Present normal affect and normal mood Skin Skin exam: Present warm, dry, intact and normal color Medical Decision Making Medical Records Medical records reviewed: No I reviewed the patient's medical records. Ruslan Inquiry Pt receiving controlled substance: No Lab Data Lab results reviewed: Yes I reviewed the patient's lab results.
[2023-10-19 13:22] LABS: UTC Strep Screen (Rapid) Negative (Negative)
[2023-10-19 13:24] LABS: UTC Influenza A Antigen Negative (Negative)
[2023-10-19 13:25] LABS: UTC Influenza B Antigen Negative (Negative)
[2023-10-19 13:55] LABS: Coronavirus 19, PCR Not Detected (NotDetected); Influenza A, PCR Not Detected (NotDetected); Influenza B, PCR Not Detected (NotDetected)
[2023-10-19 14:05] VITALS: BP 143/78; PULSE 60; RESP 18; TEMP 36.8; O2SAT 99
== END 2023-10-19 14:05 | disposition home or self-care (01) ==
PROVIDERS: Emergency Provider Nurse Practitioner Family
DX: J02.9 Acute pharyngitis, unspecified (principal); R50.9 Fever, unspecified; M79.18 Myalgia, other site; R53.81 Other malaise; B34.9 Viral infection, unspecified
CPT/HCPCS: 87636; 87804; 87880; 99212; 99214; G0463

== ENCOUNTER 2024-05-02 15:18 | Outpatient (CLI) | payer BC, SELFPAY | END 2024-05-02 23:59 | disposition home or self-care (01) | LOC: LAB.DROPOF 05-03 11:26 | PROVIDERS: PCP Student in an Organized Health Care Education/Training Program; Visit Provider Student in an Organized Health Care Education/Training Program | DX: R05.9 Cough, unspecified (principal); H93.90 Unspecified disorder of ear, unspecified ear | CPT/HCPCS: 87070 ==

== ENCOUNTER 2024-12-23 11:46 | Emergency (ER) | payer BC, SELFPAY ==
[2024-12-23 12:02] VITALS: BP 118/74; PULSE 77; RESP 16; TEMP 36.9; O2SAT 100; BMI 33.5
--- NOTE | 2024-12-23 12:20 | ED_ITS ---
<Statement entered by Johnna Baird DO - 12/23/24 15:28> I was consulted by the NIVIA, and we discussed the complexity of the problems being addressed. I approved the treatment and management plan for this patient's care in the emergency department, thus performing a substantive portion of the medical decision making. Johnna Baird DO Discharge Plan Disposition Patient Disposition: Home, Self-Care Prescriptions Prescriptions: New prednisone 20 mg tablet 20 mg PO BID 3 Days Qty: 9 0RF No Action azithromycin 250 mg tablet See Rx Instructions PO .COMPLEX Qty: 6 0RF Rx Instructions: For 250 mg dose pack: take 500 mg today (day 1), then 250 mg for 4 days (days 2-5) PO Referrals Follow up/Referrals: Lucas Ray DO [Staff Physician] - See instructions Provider,ReferralMD [Primary Care Provider] - See instructions Activity Restrictions/Add. Instructions Additional Instructions/Restrictions: Today you were evaluated in the emergency department for pain on your left arm. Please take the steroid as prescribed, please eat before you take this. Please follow-up with PCP. Return to the ED for any worsening of condition. Clinical Impressions Clinical Impression: Arm pain Qualifiers: Laterality: left Qualified Code(s): M79.602 - Pain in left arm Instructions Patient Instructions: DI for Acute Pain -- Adult Print Language Print Language: Danish Discharge ED Provider: Johnna Baird General Adult HPI General Chief complaint: Extremity Injury, Lower Stated complaint: pain under left arm Time Seen by Provider: 12/23/24 11:59 Mode of Arrival: Ambulatory Source of Information: Patient Description of Symptoms (Recalled from ER Triage Doc. by RN): Patient reports left armpit pain x2 days. Noticed pain at work and with certain movements. Pain 0/10 with no movement; 8/10 with movement. History of Present Illness HPI narrative: patient is a 24-year-old male no significant PMHx who presents to the ED with complaints of left arm pain around the bicep area x 3 days. Patient states the area only hurts when he pushes on it. He states that he has not had any obvious trauma. Related Data Previous Rx's ?Medication ?Instructions ?Recorded azithromycin 250 mg tablet See Rx Instructions PO .COMPLEX #6 10/11/24 tabs prednisone 20 mg tablet 20 mg PO BID 3 days #9 tabs 12/23/24 Allergies Allergy/AdvReac Type Severity Reaction Status Date / Time amoxicillin (From Augmentin) Allergy Verified 10/11/24 12:22 cefdinir (From Omnicef) Allergy Verified 10/11/24 12:22 clavulanic acid (From Allergy Verified 10/11/24 12:22 Augmentin) [facility] Disclaimer: The information contained in this section may have been updated after the patient was seen, as this information can be updated by other users. Medical History (Updated 12/23/24 @ 12:20 by Serene Sanchez APRN) Otitis media Sinusitis Exposure to COVID-19 virus Acute bronchitis Chigger bites Pharyngitis Otitis media Social History Smoking Status: Never smoker second hand exposure: No alcohol intake: never substance use type: denies use current occupational status: other Travel in the last 8 weeks?: None household members: family housing: house current occupational exposures/hazards: No caffeine: Yes Have you lived/traveled outside [place] in past 30 days?: No Contact w/someone who lives/traveled outside [place] past 30 days?: No Exposure to someone with infectious disease in past 14 days?: No Do you have a fever (greater than 100.4 F or 38 C)?: No Have you tested positive for COVID-19?: No Exposed to someone with COVID-19 in past 14 days?: No Do you have a sore throat?: No Do you have a cough?: No Do you have any weakness?: No Do you have any diarrhea?: No Are you experiencing any unusual bleeding?: No Do you have any muscle aches/pain?: No Do you have any abdominal pain?: No Are you experiencing loss of taste or smell?: No Other Medical History Have you received the Pneumonia Vaccine: No ROS Obtained: Yes Systems reviewed as appropriate & no additional complaints except as documented Physical Exam General General appearance: alert and in no apparent distress Head Head exam: atraumatic and normocephalic Eye Eye exam: Present normal appearance and PERRL ENT ENT exam: Present normal exam Neck Neck exam: Present normal inspection Chest Chest inspection: Present normal inspection and symmetric chest wall rise; Absent tenderness Respiratory Respiratory exam: Present normal lung sounds bilaterally Cardiovascular Cardiovascular exam: Present regular rate Abdominal Exam Abdominal exam: Present soft and normal bowel sounds; Absent tenderness Extremities Exam Extremities exam: Present normal inspection, full ROM and tenderness (anterior left bicep tenderness ) Back Exam Back exam: Present normal inspection and full ROM Neurological Exam Neurological exam: Present alert and oriented X3 Psychiatric Psychiatric exam: Present normal affect and normal mood Skin Skin exam: Present warm and dry Medical Decision Making Medical Records Screening: Per USPSTF and CDC recommendations, given the prevalence of disease in our region, it is our hospital?s policy to screen for HIV and viral Hepatitis for all patients aged 18 and over and those with ongoing risk factors. Ruslan Inquiry Pt receiving controlled substance: No Vital Signs: 12/23/24 12:02 12/23/24 12:23 Temperature 98.4 F 98.4 F Temperature Source Oral Pulse Rate 77 Pulse Rate [Left Radial] 77 Respiratory Rate 16 16 Blood Pressure 118/74 Blood Pressure [Left Arm] 118/74 Blood Pressure Mean [Left Arm] 88 Blood Pressure Source [Left Arm] Automatic Cuff 02 Sat by Pulse Oximetry 100 Oxygen Delivery Method Room Air Room Air Medical Decision Narrative: In summary, patient is a 24-year-old male no significant PMHx who presents to the ED with complaints of left arm pain around the bicep area x 3 days. Patient states the area only hurts when he pushes on it. He states that he has not had any obvious trauma. He has not taken any shme-xau-nvptniu pain medication prior to arrival. Patient states that he feels like the area may be inflamed. He describes the pain as a burning pain. He has not established with a PCP. Denies fever, chills, body aches, overuse injury, trauma, chest pain, shortness of breath, abdominal pain, nausea, vomiting. Upon initial evaluation patient is alert, oriented and cooperative. He is hemodynamically stable. Physical exam unremarkable. Patient has tenderness upon palpation of the anterior left bicep area. Discussed with patient that due to no injury, I do not feel that any imaging is useful at this time. I am not inclined to obtain any lab work. Offered Toradol injection, patient declined. 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 Advised him after the prednisone, he may start ibuprofen [id number] for symptomatic relief. I discussed with him that if this does not resolve, he will need to establish with a PCP. I placed a referral on his discharge papers. Discussed to return to the ED for any worsening of his condition. Patient verbalized understanding Critical Care Critical Care Time Critical Care Time: No
[2024-12-23 12:23] VITALS: BP 118/74; PULSE 77; RESP 16; TEMP 36.9; O2SAT 100
== END 2024-12-23 12:26 | disposition home or self-care (01) ==
PROVIDERS: Emergency Provider Emergency Medicine
DX: M79.602 Pain in left arm (principal)
CPT/HCPCS: 99283

== ENCOUNTER 2025-04-06 11:20 | Outpatient (CLI) | payer BC, SELFPAY ==
[2025-04-06 14:51] LABS: Coronavirus 19, PCR Not Detected (NotDetected); Influenza A, PCR Not Detected (NotDetected); Influenza B, PCR Not Detected (NotDetected)
== END 2025-04-06 23:59 | disposition home or self-care (01) ==
LOC: LAB.DROPOF 04-07 14:04
PROVIDERS: PCP Student in an Organized Health Care Education/Training Program; Visit Provider Student in an Organized Health Care Education/Training Program
DX: J06.9 Acute upper respiratory infection, unspecified (principal)
CPT/HCPCS: 87631